=== PATIENT | female | born 1975 | race African-American/Black ===

== ENCOUNTER 2018-10-18 10:02 | Observation (INO) | payer OTHER ==
[~2018-10-18] VITALS: Ht 162.6 cm; Wt 95.3 kg
[2018-10-18] MEDS ORDERED: PNV1TABL50 PO (10:51)
[2018-10-18] MEDS ORDERED: FERR325T6 PO (10:54)
== END 2018-10-18 11:40 | disposition home or self-care (01) ==
LOC: 8 EST LDRP 10:02
PROVIDERS: ADMIT Specialist; ATTEND Specialist
DX: O99.613 Diseases of the digestive system complicating pregnancy, third trimester (principal); K59.00 Constipation, unspecified; O10.913 Unspecified pre-existing hypertension complicating pregnancy, third trimester; O09.523 Supervision of elderly multigravida, third trimester; Z3A.35 35 weeks gestation of pregnancy
CPT/HCPCS: 99281; G0378